=== PATIENT | female | born 1980 | race Caucasian/White ===

== ENCOUNTER 2017-05-03 01:07 | Emergency (ER) | payer BC ==
[2017-05-03 01:13] VITALS: BP 128/82
[2017-05-03] MEDS ORDERED: ONDANSETRON 4 MG TAB.RAPDIS PO ONE (03:22)
[2017-05-03] MEDS ORDERED: DEXAMETHASONE SOD PHOS INJ 10 MG/1 ML VIAL IM ONE (03:22)
--- NOTE | 2017-05-03 03:27 | ER Document Report ---
ED General - General Chief Complaint: Vomiting Stated Complaint: VOMITING Time Seen by Provider: 05/03/17 03:17 Notes: Patient is a 36-year-old female presents with complaints of recurrent coughing. She says helps continues to cough to the point where she gets nauseous and vomits. She said she was sick just over a week ago but got better. She said she was better for several days and then started feeling sick again the last 2 days. No objective fevers at home. Says she had a very small amount of blood in her emesis earlier but no recurrent episodes of blood in her emesis since then. No diarrhea. No other complaints at this time. TRAVEL OUTSIDE OF THE [place] IN LAST 30 DAYS: No - Related Data Allergies/Adverse Reactions: No Known Allergies Allergy (Verified 05/03/17 01:09) Past Medical History - Social History Smoking Status: Unknown if Ever Smoked Frequency of alcohol use: None Drug Abuse: None Family History: Reviewed & Not Pertinent Patient has suicidal ideation: No Patient has homicidal ideation: No Renal/ Medical History: Denies: Hx Peritoneal Dialysis - Immunizations Hx Diphtheria, Pertussis, Tetanus Vaccination: Yes Review of Systems - Review of Systems Notes: My Normal Review Basic REVIEW OF SYSTEMS: CONSTITUTIONAL : Denies fever, chills, or sweats. Denies recent illness. EENT: Nasal congestion. CARDIOVASCULAR: Denies chest pain. RESPIRATORY: Recurrent cough. GASTROINTESTINAL: Denies abdominal pain. Some Vomiting. GENITOURINARY: Denies difficulty urinating, painful urination, burning, frequency, or blood in urine. MUSCULOSKELETAL: Denies neck or back pain or joint pain or swelling. SKIN: Denies rash or skin lesions. NEUROLOGICAL: Denies altered mental status or loss of consciousness. Denies headache. Denies weakness or paralysis or loss of use of either side. Denies problems with gait or speech. Denies sensory or motor loss. ALL OTHER SYSTEMS REVIEWED AND NEGATIVE. Physical Exam - Vital signs Vitals: Temp Pulse Resp BP Pulse Ox 98.3 F 89 18 128/82 H 98 05/03/17 01:10 05/03/17 01:10 05/03/17 01:10 05/03/17 01:10 05/03/17 01:10 - Notes Notes: General Appearance: Well nourished, alert, cooperative, no acute distress, no obvious discomfort. Large amount of audible nasal congestion on exam. Vitals: reviewed, See vital signs table. Head: no swelling or tenderness to the head Eyes: PERRL, EOMI, Conjuctiva clear Mouth: No decreasd moisture Throat: No tonsillar inflammation, No airway obstruction Ears: Normal-appearing tympanic membranes bilaterally. Neck: Supple, no neck tenderness Lungs: No wheezing, No rales, No rhonci, No accessory muscle use, good air exchange bilaterally. Heart: Normal rate, Regular rythm, No murmur, no rub Abdomen: Normal BS, soft, No rigidity, No abdominal tenderness, No guarding, no rebound Extremities: strength 5/5 in all extremities, good pulses in all extremities, no swelling or tenderness in the extremities, no edema. Skin: warm, dry, appropriate color, no rash Neuro: speech clear, oriented x 3, normal affect, responds appropriately to questions. Course - Re-evaluation Re-evalutation: 05/03/17 07:06 Patient has a large amount of nasal congestion on exam as well as dry cough. I will give him a dose of Decadron to see if this helps reduce some of the pressure and congestion in his sinuses. I will place her intestines Perles up with a cough. Her lung pelaez are completely clear. Her chest x-ray is negative for pneumonia. Will give her Zofran help with nausea. Her vomiting seems to be mostly posttussive. Encouraged her return to ER if she has worsening of her symptoms, high fevers, difficulty breathing, or if she feels unwell. Patient agrees with plan will be discharged home. Dictation of this chart was performed using voice recognition software; therefore, there may be some unintended grammatical errors. - Vital Signs Vital signs: Temp Pulse Resp BP Pulse Ox 98.3 F 89 18 128/82 H 98 05/03/17 01:10 05/03/17 01:10 05/03/17 01:10 05/03/17 01:10 05/03/17 01:10 Discharge - Discharge Clinical Impression: URI (upper respiratory infection) Qualifiers: URI type: unspecified URI Qualified Code(s): J06.9 - Acute upper respiratory infection, unspecified Vomiting Qualifiers: Vomiting type: unspecified Vomiting Intractability: unspecified Nausea presence : unspecified Qualified Code(s): R11.10 - Vomiting, unspecified Condition: Good Disposition: HOME, SELF-CARE Additional Instructions: Your xray was negative for pneumonia. Please return to the ER immediately if you develop recurrent vomiting, fevers, difficulty breathing, worsening cough, or if you feel that you are worsening in anyway. Prescriptions: Benzonatate [Tessalon Perle 100 mg Capsule] 100 mg PO Q8HP PRN #40 cap PRN Reason: Forms: Return to Work Referrals: PHANI BAUTISTA MD [Primary Care Provider] - 05/05/17
--- NOTE | 2017-05-03 04:10 | RADIOLOGY REPORT (SQ) ---
EXAM DESCRIPTION: CHEST PA/LAT CLINICAL HISTORY: 36 years, Female, cough COMPARISON: None. NUMBER OF VIEWS: Two. TECHNIQUE: PA and lateral. LIMITATIONS: None. FINDINGS: Adequate lung volume, clear parenchyma, normal cardiac silhouette. Intact bony thorax. IMPRESSION: No acute cardiopulmonary findings. 2011 [employer]- All Rights Reserved
[2017-05-03] MEDS ORDERED: ONDANSETRON ODT 4 MG TAB (6 TAB/DSPK) PO PRN (05:39)
== END 2017-05-03 05:45 | disposition home or self-care (01) ==
LOC: ER 01:07
DX: J06.9 Acute upper respiratory infection, unspecified (principal); R05 Cough; K92.0 Hematemesis; R09.81 Nasal congestion
CPT/HCPCS: 99283; 96372; 71020; S0119; J1100